=== PATIENT | female | born 1985 | race Caucasian/White ===

== ENCOUNTER 2018-10-01 15:57 | Emergency (ER) | payer OTHER ==
--- NOTE | 2018-10-01 16:01 | PDOC ---
Rapid Medical Evaluation Time Seen by Provider: 10/01/18 15:59 Medical Evaluation: Allergies Allergy/AdvReac Type Severity Reaction Status Date / Time No Known Allergies Allergy Verified 10/01/18 15:48 I have performed a brief in-person evaluation of this patient. The patient presents with a chief complaint of: 20 weeks with abdominal pain. was seen and monitored up here and was sent down for further evaluation Pertinent physical exam findings: none I have ordered the following: UA/culture The patient will proceed to the ED for further evaluation. Discharge Disposition - Diagnosis Abdominal pain affecting - Referrals Referrals: Jed Grey [Primary Care Provider] - - Patient Instructions - Post Discharge Activity
[2018-10-01 16:03] VITALS: BP 121/72; PULSE 67; TEMP 98.3; BMI 38.9
[2018-10-01 16:24] LABS: URINE APPEARANCE CLEAR; URINE BILIRUBIN NEGATIVE (<2.0 mg/dL); URINE COLOR COLORLESS; URINE GLUCOSE (UA) NEGATIVE (NEGATIVE); URINE KETONE NEGATIVE (NEGATIVE); URINE LEUK ESTERASE NEGATIVE (NEGATIVE); URINE NITRITE NEGATIVE (NEGATIVE); URINE PROTEIN NEGATIVE (NEGATIVE); URINE UROBILINOGEN NEGATIVE mg/dL (0.2-1.0)
--- NOTE | 2018-10-01 16:34 | PDOC ---
Attending Attestation - HPI HPI: This patient is a 33 year old female , currently 20 weeks , who presents with abdominal pain for a couple months that acutely worsened today. Patient describes the abdominal pain as a sharp, burning on skin, soreness, located near belly button, nonradiating, worsen when stand up, sneezing, or bearing down. Patient states that she has had a hard time picking up her 40 lb 2 year old son and putting him in the car seat. Patient also notes nausea and vomiting that has been consistent with her morning sickness. She also notes 1 ep. of diarrhea last night. Denies any fever, vaginal bleeding, or d/c, denies any cramping, constipation, dysuria, or other urinary complaints. Surgical Hx: Appendectomy (2004) PCP: [facility] - Dr. Rubi 10/01/18 18:06 <Danyell Majano - Last Filed: 10/01/18 18:06> - Resident Resident Name: Gera Tolliver - ED Attending Attestation I have performed the following: I have examined & evaluated the patient, The case was reviewed & discussed with the resident, I agree w/resident's findings & plan, Exceptions are as noted - Physicial Exam PE: 10/01/18 17:53 GENERAL: The patient is awake, alert, and fully oriented, Nontoxic - in no acute distress. HEAD: Normocephalic, atraumatic. EYES: extraocular movements intact, sclera anicteric, conjunctiva clear. ENT: Normal voice, Moist mucous membranes. ABDOMEN: Soft, moderate reproducbile tenderness in the periumbilical region + small palable defect w/o mass/incarceration, no significant mass on bearing down , pain reprodible with flexion of absdominal wall muscles. no rebound/guarding, neg rovsigns, mcburneys, SKIN: Warm, Dry, normal turgor, no rashes on abd wall - Medical Decision Making 10/01/18 17:14 33y F at 20 weeks presents with complaint of several months of abodminal pain. Pain is worse, sharp/soreness in the epgigastrium. worsens when she stands , sneezes, bears down, movement. Pt has been having morning sickness since early and notes she has been nausea c/w same, but notes it has actually been improving. had a few episodes of diarrhea eysterday but resolved. no associated fever/chills, vag bleeding, dysuria, vag discharge. consider possible hernia no signs of obstruction clinically or palpable mass on exam ?possible muscle strain. will give tylenol will ck basic labs UA neg for UTI supprotive care at home if w/u negative 10/01/18 18:54 A portion of this note was documented by scribe services under my direction. I have reviewed the details of the note, within reason, and agree with the documentation with the following case summary and management plan written by me <Bo Sarmiento - Last Filed: 10/01/18 18:54>
[2018-10-01] MEDS ORDERED: ONDANSETRON 4 MG/2 ML VIAL IVPUSH ONE (17:27)
[2018-10-01] MEDS ORDERED: SODIUM CHLORIDE 0.9% 1000 ML INFUS.BAG IV ONE (17:27)
[2018-10-01] MEDS ORDERED: FAMOTIDINE 20 MG/50 ML IVPB 20 MG/50 ML MG IVPB ONE ×2 (17:27→17:37)
[2018-10-01] MEDS ORDERED: ONDANSETRON 4 MG/2 ML VIAL ONE (17:37)
[2018-10-01] MEDS ORDERED: ACETAMINOPHEN 325 MG TABLET (FP) PO ONE (17:49)
[2018-10-01] MEDS ORDERED: ACETAMINOPHEN 325 MG TABLET (FP) ONE (17:49)
[2018-10-01 18:01] LABS: BASO % 0.4 % (0-2.0); LYMPH % 18.2 % (8-40); MCH 31.4 pg (25.7-33.7); MCHC 35.2 g/dl (32.0-36.0); MEAN CELL VOLUME 89.1 fl (80-96); NEUT % 76.4 % (42.8-82.8); PLATELET COUNT 301 K/MM3 (134-434); RBC 3.81 M/mm3 (3.60-5.2); RDW 13.2 % (11.6-15.6); WHITE BLOOD COUNT 11.4 K/mm3 (4.0-10.0)
[2018-10-01 18:22] LABS: ALBUMIN 3.1 g/dl (3.4-5.0); ALK PHOS 50 U/L (45-117); ANION GAP 9 MMOL/L (8-16); BILIRUBIN,TOTAL 0.2 mg/dL (0.2-1); BLOOD UREA NITROGEN 12 mg/dL (7-18); CALCIUM 8.7 mg/dL (8.5-10.1); CHLORIDE 103 mmol/L (98-107); CO2 24 mmol/L (21-32); CREATININE 0.5 mg/dL (0.55-1.3); GLUCOSE,RANDOM 128 mg/dL (74-106); POTASSIUM 3.8 mmol/L (3.5-5.1); SGOT/AST 12 U/L (15-37); SGPT/ALT 12 U/L (13-61); SODIUM 136 mmol/L (136-145); TOT PROT 6.9 g/dl (6.4-8.2)
--- NOTE | 2018-10-01 18:50 | PDOC ---
History of Present Illness - General Chief Complaint: Pain Stated Complaint: Pain Time Seen by Provider: 10/01/18 15:59 History Source: Patient Exam Limitations: No Limitations - History of Present Illness Initial Comments: 10/01/18 18:44 The patient is a 33F at 20 weeks who presents to the ER with complaints of abdominal pain. The patient describes 2-3 months of abdominal soreness located right on her umbilicus. She states that the pain does not radiate anywhere. Today, she noticed that the pain was much worse than prior, worsened with any movements and anything that increased her intraabdominal pressure including sneezing and standing up. She admits to diarrhea and 3 bouts of nausea and vomiting. She denies any fever, chills, CP, SOB, dysuria, vaginal bleeding, and cramping. Past History - Past Medical History Allergies/Adverse Reactions: Allergies Allergy/AdvReac Type Severity Reaction Status Date / Time No Known Allergies Allergy Verified 10/01/18 16:08 Home Medications: Ambulatory Orders NK [No Known Home Medication] 10/01/18 Asthma: No Cancer: No Cardiac Disorders: No COPD: No Diabetes: No HTN: No Seizures: No Thyroid Disease: No - Surgical History Appendectomy: Yes - Reproductive History Is Patient Now?: Yes Cervical CA: No Dysfunctional Uterine Bleeding: No Ectopic : No Endometrial CA: No Polycystic Ovaries: No Tubal Ligation: No - Immunization History Immunization Up to Date: Yes - Suicide/Smoking/Psychosocial Hx Smoking History: Never smoked Have you smoked in the past 12 months: No Hx Alcohol Use: No Drug/Substance Use Hx: No Substance Use Type: None Hx Substance Use Treatment: No Review of Systems - Review of Systems Able to Perform ROS?: Yes Comments:: 10/01/18 18:47 GENERAL/CONSTITUTIONAL: No fever or chills. No weakness. HEAD, EYES, EARS, NOSE AND THROAT: No change in vision. No ear pain or discharge. No sore throat. CARDIOVASCULAR: No chest pain, palpitations, or lightheadedness. RESPIRATORY: No cough, wheezing, shortness of breath, or hemoptysis. GASTROINTESTINAL: Positive for nausea, vomiting, abdominal pain, and diarrhea. GENITOURINARY: No dysuria, frequency, hematuria, or change in urination. MUSCULOSKELETAL: No joint or muscle swelling or pain. No neck or back pain. SKIN: No rash or lesions. NEUROLOGIC: No headache, numbness, tingling, focal weakness, loss of consciousness, or change in strength/sensation. Is the patient limited Swedish proficient: No *Physical Exam - Vital Signs Last Vital Signs Temp Pulse Resp BP Pulse Ox 98.3 F 67 18 121/72 100 10/01/18 15:59 10/01/18 15:59 10/01/18 15:59 10/01/18 15:59 10/01/18 15:59 - Physical Exam Comments: 10/01/18 18:49 GENERAL: Well developed, well nourished. Awake and alert. In mild distress. HEENT: Normocephalic, atraumatic. Hearing grossly normal. Moist mucous membranes. PERRLA, EOMI. No conjunctival pallor. Sclera are non-icteric. NECK: Supple. Full ROM. No JVD. CARDIOVASCULAR: Regular rate and rhythm. No murmurs, rubs, or gallops. PULMONARY: No evidence of respiratory distress. Lungs clear to auscultation bilaterally. No wheezing, rales or rhonchi. ABDOMINAL: Soft. TTP over perumbilical abdomen and suprapubic abdomen with voluntary guarding. Non-distended. No rebound. GENITOURINARY: No CVA tenderness bilaterally. MUSCULOSKELETAL: Normal range of motion at all joints. No bony deformities or tenderness. EXTREMITIES: No cyanosis. No clubbing. No edema. No calf tenderness or swelling. SKIN: Warm and dry. Normal capillary refill. No rashes. No jaundice. NEUROLOGICAL: Alert, awake, appropriate. Cranial nerves 2-12 grossly intact. Normal speech. Gait is normal without ataxia. PSYCHIATRIC: Cooperative. Good eye contact. Appropriate mood and affect. Moderate Sedation - Procedure Monitoring Vital Signs: Procedure Monitoring Vital Signs Temperature 98.3 F 10/01/18 15:59 Pulse Rate 67 10/01/18 15:59 Respiratory Rate 18 10/01/18 15:59 Blood Pressure 121/72 10/01/18 15:59 O2 Sat by Pulse Oximetry (%) 100 10/01/18 15:59 ED Treatment Course - LABORATORY CBC & Chemistry Diagram: 10/01/18 17:49 10/01/18 17:49 - ADDITIONAL ORDERS Additional order review: Laboratory Results 10/01/18 10/01/18 17:49 16:10 Sodium 136 Potassium 3.8 Chloride 103 Carbon Dioxide 24 Anion Gap 9 BUN 12 Creatinine 0.5 L Creat Clearance w eGFR > 60 Random Glucose 128 H Calcium 8.7 Total Bilirubin 0.2 AST 12 L ALT 12 L Alkaline Phosphatase 50 Total Protein 6.9 Albumin 3.1 L Urine Color Colorless Urine Appearance Clear Urine pH 6.0 Ur Specific [place] 1.004 L Urine Protein Negative Urine Glucose (UA) Negative Urine Ketones Negative Urine Blood Negative Urine Nitrite Negative Urine Bilirubin Negative Urine Urobilinogen Negative Ur Leukocyte Esterase Negative 10/01/18 17:49 RBC 3.81 MCV 89.1 MCHC 35.2 RDW 13.2 MPV 7.0 L Neutrophils % 76.4 D Lymphocytes % 18.2 D Monocytes % 4.0 Eosinophils % 1.0 Basophils % 0.4 - Medications Given in the ED: ED Medications Discontinued Medications Generic Name Dose Route Start Last Admin Trade Name Freq PRN Reason Stop Dose Admin Acetaminophen 650 mg 10/01/18 17:49 10/01/18 17:54 Tylenol - PO 10/01/18 17:50 650 mg ONCE ONE Administration Famotidine/Sodium Chloride 20 mg in 50 mls @ 100 mls/hr 10/01/18 17:27 17:55 Pepcid 20 Mg Premixed Ivpb - IVPB 10/01/18 17:56 Not Given ONCE ONE Ondansetron HCl 4 mg 10/01/18 17:27 10/01/18 17:55 Zofran Injection IVPUSH 10/01/18 17:28 Not Given ONCE ONE Sodium Chloride 1,000 ml 10/01/18 17:27 10/01/18 17:55 Normal Saline - IV 10/01/18 17:28 Not Given ONCE ONE Medical Decision Making - Medical Decision Making 10/01/18 18:50 The patient is a 33F at 20 weeks who presents to the ER for abdominal pain , concerning for hernia vs MSK vs UTI. UA negative. Pt was seen by GERIATRICS PHYSICIAN and cleared for ED evaluation, making me less concerned for a pathological event with the fetus. Giving GI cocktail and reassessing. No palpable incarceration appreciated on examination, no masses appreciated either. Pt states she did not feel better after the GI cocktail and requests food. Will give food and reassess. 10/01/18 18:52 Pt signed out to Dr. Cottrell for further care. *DC/Admit/Observation/Transfer Diagnosis at time of Disposition: Abdominal pain affecting - Referrals Referrals: Jed Grey [Primary Care Provider] - - Patient Instructions - Post Discharge Activity
--- NOTE | 2018-10-01 19:16 | PDOC ---
*Physical Exam - Vital Signs Last Vital Signs Temp Pulse Resp BP Pulse Ox 98.3 F 67 18 121/72 100 10/01/18 15:59 10/01/18 15:59 10/01/18 15:59 10/01/18 15:59 10/01/18 15:59 - Physical Exam General Appearance: Yes: Nourished, Appropriately Dressed HEENT: positive: EOMI, RAF, Normal ENT Inspection, Normal Voice, Symmetrical Neck: positive: Trachea midline. negative: Rigid, Supple Respiratory/Chest: positive: Lungs Clear, Normal Breath Sounds. negative: Respiratory Distress Cardiovascular: positive: Regular Rhythm, Regular Rate, S1, S2. negative: Edema Vascular Pulses: Dorsalis-Pedis (R): 2+, Doralis-Pedis (L): 2+ Gastrointestinal/Abdominal: positive: Normal Bowel Sounds, Tender, Tenderness. negative: Pulsatile Mass, Increased Bowel Sounds, Distended, Guarding, Rebound Lymphatic: negative: Adenopathy Musculoskeletal: positive: Normal Inspection. negative: CVA Tenderness Extremity: positive: Normal Capillary Refill, Normal Inspection, Normal Range of Motion Integumentary: positive: Normal Color, Dry, Warm Neurologic: positive: process development engineer II-XII NML intact, Fully Oriented, Alert, Normal Mood/ Affect ED Treatment Course - LABORATORY CBC & Chemistry Diagram: 10/01/18 17:49 10/01/18 17:49 - ADDITIONAL ORDERS Additional order review: Laboratory Results 10/01/18 10/01/18 17:49 16:10 Sodium 136 Potassium 3.8 Chloride 103 Carbon Dioxide 24 Anion Gap 9 BUN 12 Creatinine 0.5 L Creat Clearance w eGFR > 60 Random Glucose 128 H Calcium 8.7 Total Bilirubin 0.2 AST 12 L ALT 12 L Alkaline Phosphatase 50 Total Protein 6.9 Albumin 3.1 L Urine Color Colorless Urine Appearance Clear Urine pH 6.0 Ur Specific [place] 1.004 L Urine Protein Negative Urine Glucose (UA) Negative Urine Ketones Negative Urine Blood Negative Urine Nitrite Negative Urine Bilirubin Negative Urine Urobilinogen Negative Ur Leukocyte Esterase Negative 10/01/18 17:49 RBC 3.81 MCV 89.1 MCHC 35.2 RDW 13.2 MPV 7.0 L Neutrophils % 76.4 D Lymphocytes % 18.2 D Monocytes % 4.0 Eosinophils % 1.0 Basophils % 0.4 - Medications Given in the ED: ED Medications Discontinued Medications Generic Name Dose Route Start Last Admin Trade Name Edwina PRN Reason Stop Dose Admin Acetaminophen 650 mg 10/01/18 17:49 10/01/18 17:54 Tylenol - PO 10/01/18 17:50 650 mg ONCE ONE Administration Famotidine/Sodium Chloride 20 mg in 50 mls @ 100 mls/hr 10/01/18 17:27 17:55 Pepcid 20 Mg Premixed Ivpb - IVPB 10/01/18 17:56 Not Given ONCE ONE Ondansetron HCl 4 mg 10/01/18 17:27 10/01/18 17:55 Zofran Injection IVPUSH 10/01/18 17:28 Not Given ONCE ONE Sodium Chloride 1,000 ml 10/01/18 17:27 10/01/18 17:55 Normal Saline - IV 10/01/18 17:28 Not Given ONCE ONE Medical Decision Making - Medical Decision Making Patient signed out to me from day team. She is a 33F at 20 weeks who presents to the ER for abdominal pain, concerning for hernia vs MSK vs UTI. UA negative. - Pt was seen by [facility] and cleared for ED evaluation, making me less concerned for a pathological event with the fetus. - She received a GI cocktail and did not report any relief. - No palpable incarceration appreciated on examination, no masses appreciated either - Will send for abdominal US to r/o hernia - US showed no ventral hernia - Will also give liter of NS to hydrate patient and baby. - Will reccommend MRI as outpatient if pain persists. *DC/Admit/Observation/Transfer Diagnosis at time of Disposition: Abdominal pain affecting - Discharge Dispostion Disposition: HOME Condition at time of disposition: Stable Decision to Admit order: No - Referrals Referrals: Jed Grey [Primary Care Provider] - - Patient Instructions Printed Discharge Instructions: and Sleep: A Contradiction in Terms? , Skin: Glowing, Stretching, Darkening, and More Additional Instructions: You came into the ER with abdominal pain. We did an ultrasound which showed you don't have a hernia. If your pain persists you should get an MRI as an outpatient. Come back to the ER if your pain worsens, you start vomiting or have any other new or worsening concerns. \ Thank you for coming to the [facility] ER. We hope you feel better soon! Print Language: TELUGU - Post Discharge Activity
[2018-10-01] MEDS ORDERED: SODIUM CHLORIDE 0.9% 500 ML INFUS.BAG IV ONE (19:33)
--- NOTE | 2018-10-01 19:40 | PDOC ---
*Physical Exam - Vital Signs Last Vital Signs Temp Pulse Resp BP Pulse Ox 98.3 F 67 18 121/72 100 10/01/18 15:59 10/01/18 15:59 10/01/18 15:59 10/01/18 15:59 10/01/18 15:59 ED Treatment Course - LABORATORY CBC & Chemistry Diagram: 10/01/18 17:49 10/01/18 17:49 - ADDITIONAL ORDERS Additional order review: Laboratory Results 10/01/18 10/01/18 17:49 16:10 Sodium 136 Potassium 3.8 Chloride 103 Carbon Dioxide 24 Anion Gap 9 BUN 12 Creatinine 0.5 L Creat Clearance w eGFR > 60 Random Glucose 128 H Calcium 8.7 Total Bilirubin 0.2 AST 12 L ALT 12 L Alkaline Phosphatase 50 Total Protein 6.9 Albumin 3.1 L Urine Color Colorless Urine Appearance Clear Urine pH 6.0 Ur Specific [place] 1.004 L Urine Protein Negative Urine Glucose (UA) Negative Urine Ketones Negative Urine Blood Negative Urine Nitrite Negative Urine Bilirubin Negative Urine Urobilinogen Negative Ur Leukocyte Esterase Negative 10/01/18 17:49 RBC 3.81 MCV 89.1 MCHC 35.2 RDW 13.2 MPV 7.0 L Neutrophils % 76.4 D Lymphocytes % 18.2 D Monocytes % 4.0 Eosinophils % 1.0 Basophils % 0.4 - RADIOLOGY Radiology Studies Ordered: Category Date Time Status ABDOMEN US -LIMITED [US] Stat Ultrasound 10/01/18 19:34 Ordered - Medications Given in the ED: ED Medications Discontinued Medications Generic Name Dose Route Start Last Admin Trade Name Obinnaq PRN Reason Stop Dose Admin Acetaminophen 650 mg 10/01/18 17:49 10/01/18 17:54 Tylenol - PO 10/01/18 17:50 650 mg ONCE ONE Administration Famotidine/Sodium Chloride 20 mg in 50 mls @ 100 mls/hr 10/01/18 17:27 17:55 Pepcid 20 Mg Premixed Ivpb - IVPB 10/01/18 17:56 Not Given ONCE ONE Ondansetron HCl 4 mg 10/01/18 17:27 10/01/18 17:55 Zofran Injection IVPUSH 10/01/18 17:28 Not Given ONCE ONE Sodium Chloride 1,000 ml 10/01/18 17:27 10/01/18 17:55 Normal Saline - IV 10/01/18 17:28 Not Given ONCE ONE Medical Decision Making - Medical Decision Making 10/01/18 19:35 I received pt on signout. She describes umbilical pain and decreased intake today and viral gastroenteritis story last night with diarrhea around midnight. Pt will be hydrated, as she was not earlier. Pt also descrobes shooting umbilical pain when she picked up her 2 yo today; states that she never has pain lifting him. Pt also had pain sitting at her desk at work. She states that the discomfort would not go away. Pt has no appendix (it was removed) and she has no RUQ pain. All pain is around the belly buttin and inferior to the umbilicus. I placed pt in trendelenberg and attempted to press in the area. I could not feel a defect, ut pt was in considerable pain and she was tearing up. We will send her for a sono of the umbilicus. 10/01/18 22:09 Pt had a sono that was read as normal; and she has no ventral hernia seen. Pt was hydrated with 1L NSS and she is feeling better *DC/Admit/Observation/Transfer Diagnosis at time of Disposition: Abdominal pain affecting - Discharge Dispostion Disposition: HOME Condition at time of disposition: Stable - Referrals Referrals: Jed Grey [Primary Care Provider] - - Patient Instructions Printed Discharge Instructions: Skin: Glowing, Stretching, Darkening , and More, and Sleep: A Contradiction in Terms? Additional Instructions: You came into the ER with abdominal pain. We did an ultrasound which showed you don't have a hernia. If your pain persists you should get an MRI as an outpatient. Come back to the ER if your pain worsens, you start vomiting or have any other new or worsening concerns. \ Thank you for coming to the [facility] ER. We hope you feel better soon! Print Language: ITALIAN - Post Discharge Activity
== END 2018-10-01 23:06 | disposition home or self-care (01) ==
LOC: JER 15:57
PROC: 3E0337Z Introduction of Electrolytic and Water Balance Substance into Peripheral Vein, Percutaneous Approach (ICD-10-PCS; principal; 2018-10-01)
DX: O26.892 Other specified pregnancy related conditions, second trimester (principal); Z3A.20 20 weeks gestation of pregnancy; R10.9 Unspecified abdominal pain
CPT/HCPCS: 36415; 76705; 80053; 81003; 85025; 87086; 99283-25

== ENCOUNTER 2018-12-11 21:46 | Emergency (ER) | payer OTHER ==
[2018-12-11 21:50] VITALS: BMI 40.2
--- NOTE | 2018-12-11 22:45 | PDOC ---
History of Present Illness - General Chief Complaint: Respiratory Stated Complaint: 31 WKS /COUGHING/VOMITING Time Seen by Provider: 12/11/18 21:51 History Source: Patient Exam Limitations: No Limitations - History of Present Illness Initial Comments: 12/11/18 22:47 HISTORY OF PRESENT ILLNESS: This is a 33-year-old was 31 weeks gestation who presents emergency department for evaluation of 2 weeks of dry cough, nasal congestion and posttussive vomiting. Patient was seen and evaluated in urgent care center and told to take Tylenol fluids for symptomatic treatment. Patient was reevaluated by her PORT STEWARD and put her on azithromycin to treat for potential pneumonia and/or strep throat as patient had sore throat and cough. Patient denies any PORT STEWARD complaints at this time. No recent travel or sick contacts. PAST MEDICAL HISTORY: Denies past medical history SURGICAL HISTORY: Denies ALLERGIES: No known drug allergies REVIEW OF SYSTEMS General/Constitutional: Denies fever or chills. Denies weakness, weight change. HEENT: Denies change in vision. Denies ear pain or discharge. Denies sore throat. Cardiovascular: Denies chest pain or shortness of breath. Respiratory: see HPI Gastrointestinal: see HPI Genitourinary: Denies dysuria, frequency, or change in urination. Musculoskeletal: Denies joint or muscle swelling or pain. Denies neck or back pain. Skin and breasts: Denies rash or easy bruising. Neurologic: Denies headache, vertigo, loss of consciousness, or loss of sensation. Psychiatric: Denies depression or anxiety. Endocrine: Denies increased thirst. Denies abnormal weight change. Hematologic/Lymphatic: Denies anemia, easy bleeding, or history of blood clots. Allergic/Immunologic: Denies hives or skin allergy. Denies latex allergy. PHYSICAL EXAM General Appearance: Well-appearing, appropriately dressed. No apparent distress , no intoxication. HEENT: EOMI, PERRLA, normal voice, TMs normal. Oropharynx erythematous with singular vesicular lesion present to the soft palate on the right side. No conjunctival pallor. No photophobia, scleral icterus. Neck: Supple. Trachea midline. No tenderness, rigidity, carotid bruit, stridor , lymphadenopathy, or thyromegaly. Respiratory/Chest: Lungs CTAB. No shortness of breath, chest tenderness, respiratory distress, accessory muscle use. No crackles, rales, rhonchi, stridor , wheezing, dullness Cardiovascular: RRR. S1, S2. No JVD, murmur, bradycardia, tachycardia. Vascular Pulses: Dorsalis-Pedis (R): 2+, Dorsalis-Pedis (L): 2+ Gastrointestinal/Abdominal: Normal bowel sounds. Abdomen soft, non-distended. No tenderness or rebound tenderness. No organomegaly, pulsatile mass, guarding, hernia, hepatomegaly, splenomegaly. Lymphatic: No adenopathy, tenderness. Musculoskeletal/Extremities: Normal inspection. FROM of all extremities, normal capillary refill. Pelvis Stable. No CVA tenderness. No tenderness to extremities, pedal edema, swelling, erythema or deformity. Integumentary: Appropriate color, dry, warm. No cyanosis, erythema, jaundice or rash Neurologic: lightning rod erector II-XII intact. Fully oriented, alert. Appropriate mood/affect. Motor strength 5/5. No appreciable EOM palsy, facial droop or sensory deficit. Past History - Past Medical History Allergies/Adverse Reactions: Allergies Allergy/AdvReac Type Severity Reaction Status Date / Time No Known Allergies Allergy Verified 12/11/18 21:50 Home Medications: Ambulatory Orders NK [No Known Home Medication] 10/01/18 Asthma: No Cancer: No Cardiac Disorders: No COPD: No Diabetes: No HTN: No Seizures: No Thyroid Disease: No - Surgical History Appendectomy: Yes - Reproductive History Cervical CA: No Dysfunctional Uterine Bleeding: No Ectopic : No Endometrial CA: No Polycystic Ovaries: No Tubal Ligation: No - Immunization History Immunization Up to Date: Yes - Suicide/Smoking/Psychosocial Hx Smoking History: Never smoked Have you smoked in the past 12 months: No Hx Alcohol Use: No Drug/Substance Use Hx: No Substance Use Type: None Hx Substance Use Treatment: No *Physical Exam - Vital Signs Last Vital Signs Temp Pulse Resp BP Pulse Ox 97.9 F 82 18 132/84 97 12/11/18 21:48 12/11/18 21:48 12/11/18 21:48 12/11/18 21:48 12/11/18 21:48 Moderate Sedation - Procedure Monitoring Vital Signs: Procedure Monitoring Vital Signs Temperature 97.9 F 12/11/18 21:48 Pulse Rate 82 12/11/18 21:48 Respiratory Rate 18 12/11/18 21:48 Blood Pressure 132/84 12/11/18 21:48 O2 Sat by Pulse Oximetry (%) 97 12/11/18 21:48 Medical Decision Making - Medical Decision Making 12/11/18 22:30 A/P: 33-year-old woman for evaluation of 2 weeks of a story symptoms 34 weeks Influenza testing is negative Lungs clear to auscultation bilaterally Oropharynx erythematous with a single vesicular lesion present to the soft palate on the right side. Exam is consistent with coxsackie virus infection. Supportive treatment is been discussed with the patient was verbalized understanding of discharge instructions. I'll send patient to L&D for evaluation of the child. 12/11/18 22:47 L&D contacted and Jacki LEIJA is aware of patient. *DC/Admit/Observation/Transfer Diagnosis at time of Disposition: URI (upper respiratory infection) Qualifiers: URI type: acute pharyngitis Pharyngitis/tonsillitis etiology: Coxsackie virus Qualified Code(s): B08.5 - Enteroviral vesicular pharyngitis - Discharge Dispostion Disposition: HOME Condition at time of disposition: Stable Decision to Admit order: No - Referrals Referrals: Michael Patel MD [Primary Care Provider] - - Patient Instructions Additional Instructions: Rest, drink lots of fluids: Teas, water, soups, Pedialyte Saltwater gargles Steamy showers/seem to face break up mucus Avoid contact with others until fevers and cough resolved Lots of handwashing and good hygiene Continue [id number] medications for symptomatic relief Tylenol for fever and pain Followup with private physician in one to 2 days as needed Return to emergency department for worsened symptoms, fevers, dehydration - Post Discharge Activity
[2018-12-12] MEDS ORDERED: DEXTROSE 5%-LACTATED RINGERS 500 ML IV ONE ×2 (01:30→02:30)
[2018-12-12 01:31] LABS: BASO % 0.2 % (0-2.0); EOS % 1.4 % (0-4.5); HEMOGLOBIN 10.3 GM/dL (10.7-15.3); MCH 31.6 pg (25.7-33.7); MCHC 35.4 g/dl (32.0-36.0); MEAN CELL VOLUME 89.3 fl (80-96); MEAN PLT VOLUME 7.2 fl (7.5-11.1); MONO % 7.6 % (3.8-10.2); NEUT % 65.8 % (42.8-82.8); PLATELET COUNT 312 K/MM3 (134-434); RBC 3.25 M/mm3 (3.60-5.2); RDW 13.3 % (11.6-15.6)
[2018-12-12 01:58] LABS: ALBUMIN 2.7 g/dl (3.4-5.0); ALK PHOS 116 U/L (45-117); ANION GAP 7 MMOL/L (8-16); BILIRUBIN,TOTAL 0.2 mg/dL (0.2-1); BLOOD UREA NITROGEN 16 mg/dL (7-18); CALCIUM 8.6 mg/dL (8.5-10.1); CHLORIDE 103 mmol/L (98-107); CO2 26 mmol/L (21-32); CREATININE 0.5 mg/dL (0.55-1.3); GLUCOSE,RANDOM 82 mg/dL (74-106); POTASSIUM 3.6 mmol/L (3.5-5.1); SGOT/AST 11 U/L (15-37); SGPT/ALT 11 U/L (13-61); SODIUM 136 mmol/L (136-145); TOT PROT 6.5 g/dl (6.4-8.2)
[2018-12-12] MEDS ORDERED: ONDANSETRON 4 MG/2 ML VIAL IVPB ONE (02:45)
[2018-12-12 04:18] VITALS: BP 111/67; PULSE 77; TEMP 98.7
== END 2018-12-12 04:00 | disposition home or self-care (01) ==
LOC: JERFT 21:46 → JER 21:46
DX: O26.893 Other specified pregnancy related conditions, third trimester (principal); J06.9 Acute upper respiratory infection, unspecified; O98.513 Other viral diseases complicating pregnancy, third trimester; B33.8 Other specified viral diseases; B08.5 Enteroviral vesicular pharyngitis; Z3A.31 31 weeks gestation of pregnancy
CPT/HCPCS: 36415; 71046-TC-FY; 80053; 85025; 87804; 99282-25

== ENCOUNTER 2019-02-08 19:15 | Inpatient (IN) | payer OTHER ==
--- NOTE | 2019-02-08 19:55 | HP ---
Past Medical History - Primary Care Physician PCP:: Michael Patel - Admission Chief Complaint: 33yo P2 presented to L&D after brought in by ambulance in second stage of labor with at EGA 39w2d. 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 Cardiovascular: No: AFIB, Aneurysm, Aortic Insufficiency, Aortic Stenosis, CAD, CHF, Deep Vein Thrombosis, HTN, Hyperlipdemia, NC, Mitral Insufficiency, Mitral Stenosis, Murmur, Pulmonary Hypertension, Other Pulmonary: No: Asthma, Bronchitis, Cancer, COPD, O2 Dependent, Pneumonia, Previously Intubated, Pulmonary Embolus, Pulmonary Fibrosis, Sleep Apnea, Other Gastrointestinal: No: Ascites, Cancer, Constipation, Crohn's Disease, Diverticulitis, Diverticulosis, Esophageal Varices, Gastritis, GERD, GI Bleed, Hemorrhoids, Hiatal Hernia, Inflamatory Bowel Disease, Irritable Bowel Disease, Pancreatitis, Peptic Ulcer Disease, Ulcerative Colitis, Other Hepatobiliary: No: Cirrhosis, Cholelithiasis, Cholecystitis, Choledocholithiasis , Hepatitis A, Hepatitis B, Hepatitis C, Other Renal/: No: Renal Failure, Renal Inusuff, BPH, Cancer, Hematuria, Hemodialysis , Neurogenic Bladder, Renal Calculi, UTI, Other Reproductive: No: Ectopic , Endometriosis, Fibroids, PID, Polycystic Ovary Syndrome, Postmenopausal, Other ...Para: 2 Heme/Onc: No: Anemia, B12 Deficiency, Bleeding Disorder, Cancer, Current Chemotherapy, Current Radiation Therapy, Hemochromatosis, Hypercoaguable State, Myeloproliferative Synd, Sickle Cell Disease, Sickle Cell Trait, Thrombocytopenia, Other Infectious Disease: No: AIDS, C-Diff, Herpes Zoster, HIV, MRSA, STD's, Tuberculosis, VREF, Other Psych: No: Addictions, Anxiety, Bipolar, Depression, Panic, Psychosis, Schizophrenia, Other Musculoskeletal: Yes: Other (carpal tunnel synd) Rheumatology: No: Fibromyalgia, Gout, Lupus, Rheumatoid Arthritis, Sarcoidosis, Vasculitis, Other ENT: No: Allergic Rhinitis, Sinusitis, Other Endocrine: Yes: Other (PCOS) Dermatology: No: Basal Cell, Cellulitis, Eczema, Melanoma, Psoriasis, Squamous Cell, Other Additional Medical History: PCOS - Past Surgical History Past Surgical History: Yes: Appendectomy Hx Myomectomy: No Hx Transabdominal Cerclage: No - Smoking History Smoking history: Never smoked Have you smoked in the past 12 months: No - Alcohol/Substance Use Hx Alcohol Use: No History of Substance Use: reports: None - Social History Usual Living Arrangement: Yes: With Spouse, With Child ADL: Independent History of Recent Travel: No Home Medications - Allergies Allergies/Adverse Reactions: Allergies Allergy/AdvReac Type Severity Reaction Status Date / Time No Known Allergies Allergy Verified 12/11/18 23:53 - Home Medications Home Medications: Ambulatory Orders Pnv No.95/Ferrous Fum/Folic AC [ Vitamin Tablet] 1 each PO DAILY Review of Systems - Review of Systems Constitutional: reports: Other (Painful contractions and pushing) Eyes: reports: No Symptoms HENT: reports: No Symptoms Neck: reports: No Symptoms Cardiovascular: reports: No Symptoms Respiratory: reports: No Symptoms Gastrointestinal: reports: No Symptoms Genitourinary: reports: No Symptoms Breasts: reports: No Symptoms Reported Musculoskeletal: reports: No Symptoms Integumentary: reports: No Symptoms Neurological: reports: No Symptoms Endocrine: reports: No Symptoms Hematology/Lymphatic: reports: No Symptoms Psychiatric: reports: No Symptoms Pain Intensity: 10 Physical Exam - Maternity Constitutional: Yes: Severe Distress (due to second stage of labor), Obese Eyes: Yes: WNL, Conjunctiva Clear, EOM Intact HENT: Yes: WNL, Atraumatic, Normocephalic Neck: Yes: WNL, Supple, Trachea Midline Cardiovascular: Yes: WNL, Regular Rate and Rhythm Lungs: Clear to auscultation, Normal air movement - Abdominal Exam/OB Fundal Height: 40 Number of Fetuses: Single Presentation: Vertex Contractions: Yes - Vaginal Exam/OB Vaginal Bleediing: No Speculum Exam: No Dilatation (cm): 10 Effacement (%): 100 Amniotic Membrane Status: Leaking Amniotic Fluid: Yes: Clear Presentation: Vertex/Position Station: +3 - Physical Exam Musculoskeletal: Yes: WNL Extremities: Yes: WNL Edema: Yes Edema: LLE: Trace, RLE: Trace Integumentary: Yes: WNL Deep Tendon Reflex Grade: Normal +2 ...Motor Strength: WNL Psychiatric: Yes: WNL, Alert, Oriented Hemorrhage Risk Assessment - Risk Factors Medium Risk Factors: Yes: None High Risk Factors: Yes: None Risk Score: 1 Risk Level: Medium Risk Assessment/Plan 33yo P2 presented to L&D after brought in by ambulance in second stage of labor. The pt was brought ot the L&D room and proceeded to have over intact perineum and w/o complications. She delivered a live baby girl with 9/9. Placenta delivered spontaneously. Mother and baby are well.
[2019-02-08] MEDS ORDERED: WITCH HAZEL 50% (TUCKS) 40 PAD/JAR PAD TP PRN (20:00)
[2019-02-08] MEDS ORDERED: BENZOCAINE 28 GM HEMORRHOIDAL OINTMENT TP PRN (20:00)
[2019-02-08] MEDS ORDERED: BISACODYL 10 MG SUPP.RECT RC PRN (20:00)
[2019-02-08] MEDS ORDERED: BENZOCAINE 20% 57 GM BOTTLE TP PRN (20:00)
[2019-02-08] MEDS ORDERED: OXYTOCIN 20 UNITS in 0.9% NS 20 UNIT/1,000 ML INFUS.BAG IV SCH (20:00)
[2019-02-08] MEDS ORDERED: METHYLERGONOVINE MALEATE 0.2 MG/1 ML AMP IM PRN (20:00)
[2019-02-08 20:38] LABS: BASO % 0.3 % (0-2.0); EOS % 0.1 % (0-4.5); HEMATOCRIT 31.2 % (32.4-45.2); HEMOGLOBIN 10.4 GM/dL (10.7-15.3); LYMPH % 9.8 % (8-40); MCH 28.8 pg (25.7-33.7); MCHC 33.3 g/dl (32.0-36.0); MEAN CELL VOLUME 86.5 fl (80-96); MEAN PLT VOLUME 7.4 fl (7.5-11.1); MONO % 3.6 % (3.8-10.2); NEUT % 86.2 % (42.8-82.8); PLATELET COUNT 313 K/MM3 (134-434); RBC 3.61 M/mm3 (3.60-5.2); RDW 14.7 % (11.6-15.6); WHITE BLOOD COUNT 13.1 K/mm3 (4.0-10.0)
[2019-02-08 21:02] LABS: INR 0.91 (0.83-1.09); PROTHROMBIN TIME (PATIENT) 10.7 SEC (9.7-13.0)
[2019-02-08 21:04] LABS: ANION GAP 11 MMOL/L (8-16); BLOOD UREA NITROGEN 14 mg/dL (7-18); CALCIUM 8.8 mg/dL (8.5-10.1); CHLORIDE 105 mmol/L (98-107); CO2 22 mmol/L (21-32); CREATININE 0.6 mg/dL (0.55-1.3); GLUCOSE,RANDOM 110 mg/dL (74-106); POTASSIUM 3.4 mmol/L (3.5-5.1); SODIUM 138 mmol/L (136-145)
[2019-02-08 21:17] VITALS: BMI 40.8
--- NOTE | 2019-02-08 21:54 | PN ---
Delivery - Delivery Vaginal Delivery: No Problems, Spontaneous Type of Anesthesia: None Episiotomy/Laceration: None EBL (cc): 250 Delivery, Single - Stages of Labor Date 1st Stage Initiatied: 02/08/19 Time 1st Stage Initiated: 17:30 Date of Delivery: 02/08/19 Time of Delivery: 19:15 Date Placenta Delivered: 02/08/19 Time Placenta Delivered: 19:20 Placenta: Yes: Spontaneous, Normal Configuration - Condition of Infant Mobility Developer/Reports Analyst Present: No Gender: Female Weight: 3.77 kg Position: OA Total Hours ROM (Hrs/Mins): 2m - 5 Minutes Total Score: 9 1 Minute Total Score: 9 - [place] Feeding Plan Initial Plan: Exclusive throughout hospitalization Benefits of Exclusively reinforced: Yes Remarks - Remarks Remarks: True knot in umbilical cord.
[2019-02-08] MEDS: IBUPROFEN 600 MG TABLET (FP) PO PRN (22:22)
[2019-02-08] MEDS: ACETAMINOPHEN 325 MG TABLET (FP) PO PRN (22:22)
[2019-02-09] MEDS: IBUPROFEN 600 MG TABLET (FP) PO PRN ×3 (04:14→23:34)
[2019-02-09] MEDS: ACETAMINOPHEN 325 MG TABLET (FP) PO PRN ×3 (04:16→23:36)
[2019-02-09 07:11] LABS: BASO % 0.1 % (0-2.0); EOS % 0.5 % (0-4.5); HEMATOCRIT 28.3 % (32.4-45.2); HEMOGLOBIN 9.4 GM/dL (10.7-15.3); LYMPH % 24.9 % (8-40); MCH 28.8 pg (25.7-33.7); MCHC 33.4 g/dl (32.0-36.0); MEAN CELL VOLUME 86.2 fl (80-96); MEAN PLT VOLUME 7.3 fl (7.5-11.1); MONO % 7.6 % (3.8-10.2); NEUT % 66.9 % (42.8-82.8); PLATELET COUNT 264 K/MM3 (134-434); RBC 3.28 M/mm3 (3.60-5.2); RDW 14.7 % (11.6-15.6); WHITE BLOOD COUNT 12.9 K/mm3 (4.0-10.0)
[2019-02-09] MEDS: PRENATAL VITAMINS W/ FOLIC ACID TABLET (FP) PO SCH (09:06)
--- NOTE | 2019-02-09 15:55 | PN ---
Post Progress Note - Subjective Subjective: Patient without acute complaints. Reports tolerating oral intake without nausea or vomiting. Ambulating without dizziness. Denies fevers or chills. Pain well controlled with oral pain medication. Pumping/breast feeding without issue. Passing flatus, no BM. Post Day: 1 Type of Delivery: Vital Signs: Vital Signs Temperature 97.8 F 02/09/19 14:00 Pulse Rate 67 02/09/19 14:00 Respiratory Rate 20 02/09/19 14:00 Blood Pressure 128/67 02/09/19 14:00 O2 Sat by Pulse Oximetry (%) 100 02/08/19 20:30 Breast Exam: Yes: Soft Uterus: Yes: Fundus Firm, Fundus below umbilicus, Non-tender Abdomen/GI: Yes: Abdomen soft, Passing flatus, Tolerating PO Lochia: Yes: Rubra Lochia, amount: Small Extremities: Yes: Edema (trace) Perineum: Yes: Intact Activity: Ambulating - Labs Labs: CBC WBC 12.9 K/mm3 (4.0-10.0) H 02/09/19 06:15 RBC 3.28 M/mm3 (3.60-5.2) L 02/09/19 06:15 Hgb 9.4 GM/dL (10.7-15.3) L 02/09/19 06:15 Hct 28.3 % (32.4-45.2) L 02/09/19 06:15 MCV 86.2 fl (80-96) 02/09/19 06:15 MCH 28.8 pg (25.7-33.7) 02/09/19 06:15 MCHC 33.4 g/dl (32.0-36.0) 02/09/19 06:15 RDW 14.7 % (11.6-15.6) 02/09/19 06:15 Plt Count 264 K/MM3 (134-434) 02/09/19 06:15 MPV 7.3 fl (7.5-11.1) L 02/09/19 06:15 Absolute Neuts (auto) 8.6 K/mm3 (1.5-8.0) H 02/09/19 06:15 Neutrophils % 66.9 % (42.8-82.8) D 02/09/19 06:15 Lymphocytes % 24.9 % (8-40) D 02/09/19 06:15 Monocytes % 7.6 % (3.8-10.2) D 02/09/19 06:15 Eosinophils % 0.5 % (0-4.5) D 02/09/19 06:15 Basophils % 0.1 % (0-2.0) 02/09/19 06:15 Nucleated RBC % 0 % (0-0) 02/09/19 06:15 Assessment/Plan 33yo P3 s/p , doing well stable, afebrile. Asymptomatic for anemia. care instructions reviewed. Continue routine care. Ambulation encouraged Discharge instruction reviewed.
--- NOTE | 2019-02-09 16:06 | DS ---
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 Vital Signs: Vital Signs Temperature 97.8 F 02/09/19 14:00 Pulse Rate 67 02/09/19 14:00 Respiratory Rate 20 02/09/19 14:00 Blood Pressure 128/67 02/09/19 14:00 O2 Sat by Pulse Oximetry (%) 100 02/08/19 20:30 Constitutional: Yes: Well Nourished, No Distress, Calm Eyes: Yes: WNL, Conjunctiva Clear HENT: Yes: WNL, Atraumatic, Normocephalic Neck: Yes: WNL, Supple, Trachea Midline Cardiovascular: Yes: WNL, Regular Rate and Rhythm Respiratory: Yes: WNL, Regular, CTA Bilaterally Gastrointestinal: Yes: WNL, Normal Bowel Sounds, Soft ...Rectal Exam: Yes: Deferred Renal/: Yes: WNL Internal Exam Deferred: Yes ....Post : Yes: Uterus firm, Uterus non-tender, Slight lochia rubra Breast(s): Yes: WNL Musculoskeletal: Yes: WNL Extremities: Yes: WNL Edema: Yes Edema: LLE: Trace, RLE: Trace Integumentary: Yes: WNL Neurological: Yes: WNL, Alert, Oriented ...Motor Strength: WNL Psychiatric: Yes: WNL, Alert, Oriented Labs: CBC, BMP 02/09/19 06:15 02/08/19 20:30 Delivery - Delivery Vaginal Delivery: No Problems, Spontaneous Type of Anesthesia: None Episiotomy/Laceration: None EBL (cc): 250 Delivery, Single - Stages of Labor Date 1st Stage Initiatied: 02/08/19 Time 1st Stage Initiated: 17:30 Date of Delivery: 02/08/19 Time of Delivery: 19:15 Time Placenta Delivered: 19:20 Placenta: Yes: Spontaneous, Normal Configuration - Condition of Infant [employer] Guard Supervisor/Enforcement Manager Present: No Gender: Female Weight: 3.77 kg Position: OA Total Hours ROM (Hrs/Mins): 2m - 5 Minutes Total Score: 9 1 Minute Total Score: 9 - [place] Feeding Plan Initial Plan: Exclusive throughout hospitalization Benefits of Exclusively reinforced: Yes Remarks - Remarks Remarks: True knot in umbilical cord. Discharge Summary Reason For Visit: LABOR Labor at term. Procedures: Principal: Hospital Course: Normal recovery Condition: Good - Instructions Diet, Activity, Other Instructions: Physical activity Resume your normal everyday activity as tolerated no heavy lifting or exercise until seen by your surgeon. You may walk unlimited kathia of and climb stairs. You may resume driving the car when you feel safe and comfortable behind the wheel. No sexual activity as instructed. Wound care If you have a bandage, leave it on, and keep dry for 48-72 hours. After that time discard the outer bandage. If they are tapes on the skin under the out of bandage leave them in place. They will peel off in the next 7 to 10 days. Do Not Peel them off. You may shower the day after surgery. If there are tapes present on the skin, you may shower over them. Diet There are no dietary restrictions. Eat healthy, high-fiber foods. Drink 6 to 8 glasses of liquid each day. This will assist in keeping your bowels are regular. Pain management You may take Tylenol or acetaminophen or Ibuprofen (for example, Motrin, Advil etc.) from my pain prescription medication is ordered should be taken as prescribed for moderate to severe pain. Call MD for any of the following: Severe pain not relieved by medication Fever of 101 or higher Excessive bleeding or drainage on dressing Inability to urinate Referrals: Michael Patel MD [Staff Physician] - Disposition: HOME - Home Medications Comprehensive Discharge Medication List: Ambulatory Orders Pnv No.95/Ferrous Fum/Folic AC [ Vitamin Tablet] 1 each PO DAILY
[2019-02-09] MEDS ORDERED: SENNOSIDES/DOCUSATE COMBO (SENNA PLUS) TABLET (UD) PO PRN (22:00)
--- NOTE | 2019-02-10 07:23 | PN ---
Post Progress Note - Subjective Subjective: Patient without acute complaints. Reports tolerating oral intake without nausea or vomiting. Ambulating without dizziness. Denies fevers or chills. Pain well controlled with oral pain medication. without difficulty. Passing flatus. Post Day: 2 Type of Delivery: Vital Signs: Vital Signs Temperature 98.5 F 02/09/19 21:27 Pulse Rate 74 02/09/19 21:27 Respiratory Rate 20 02/09/19 21:27 Blood Pressure 130/68 02/09/19 21:27 O2 Sat by Pulse Oximetry (%) 100 02/08/19 20:30 Breast Exam: Yes: Engorged Uterus: Yes: Fundus Firm, Fundus below umbilicus Abdomen/GI: Yes: Abdomen soft, Passing flatus, Tolerating PO. No: Abdominal Distention, Tender Lochia: Yes: Serosa Lochia, amount: Small Extremities: Yes: Calves non-tender, Edema (+1) Activity: Ambulating - Labs Labs: CBC WBC 12.9 K/mm3 (4.0-10.0) H 02/09/19 06:15 RBC 3.28 M/mm3 (3.60-5.2) L 02/09/19 06:15 Hgb 9.4 GM/dL (10.7-15.3) L 02/09/19 06:15 Hct 28.3 % (32.4-45.2) L 02/09/19 06:15 MCV 86.2 fl (80-96) 02/09/19 06:15 MCH 28.8 pg (25.7-33.7) 02/09/19 06:15 MCHC 33.4 g/dl (32.0-36.0) 02/09/19 06:15 RDW 14.7 % (11.6-15.6) 02/09/19 06:15 Plt Count 264 K/MM3 (134-434) 02/09/19 06:15 MPV 7.3 fl (7.5-11.1) L 02/09/19 06:15 Absolute Neuts (auto) 8.6 K/mm3 (1.5-8.0) H 02/09/19 06:15 Neutrophils % 66.9 % (42.8-82.8) D 02/09/19 06:15 Lymphocytes % 24.9 % (8-40) D 02/09/19 06:15 Monocytes % 7.6 % (3.8-10.2) D 02/09/19 06:15 Eosinophils % 0.5 % (0-4.5) D 02/09/19 06:15 Basophils % 0.1 % (0-2.0) 02/09/19 06:15 Nucleated RBC % 0 % (0-0) 02/09/19 06:15 Assessment/Plan 33 yo PPD # 2 s/p , afebrile, vital signs stable, mild asymptomatic anemia, desires DC home today 1. Patient stable for discharge home today. 2. Patient encouraged to contact MD for: - Severe pain not controlled by oral pain medication - Fevers or chills - Nausea or vomiting, intolerance of oral intake 3. Patient to follow up in office in 4-6 weeks for visit
[2019-02-10 08:10] VITALS: BP 120/71; PULSE 68; TEMP 97.9
[2019-02-10] MEDS: IBUPROFEN 600 MG TABLET (FP) PO PRN (09:33)
[2019-02-10] MEDS: PRENATAL VITAMINS W/ FOLIC ACID TABLET (FP) PO SCH (09:33)
[2019-02-10] MEDS: ACETAMINOPHEN 325 MG TABLET (FP) PO PRN (09:34)
== END 2019-02-10 14:30 | disposition home or self-care (01) | DRG 807 ==
LOC: JLDR 19:15 → J3W 22:00
PROVIDERS: ADMIT Obstetrics & Gynecology; ATTEND Obstetrics & Gynecology
PROC: 10E0XZZ Delivery of Products of Conception, External Approach (ICD-10-PCS; principal; 2019-02-08)
DX: O80 Encounter for full-term uncomplicated delivery (principal); Z37.0 Single live birth; Z3A.39 39 weeks gestation of pregnancy
CPT/HCPCS: 36415; 59409; 80048; 85025; 85610; 85730; 86593; 86850; 86900; 86901

== ENCOUNTER 2024-03-18 11:16 | Emergency (ER) | payer OTHER ==
[2024-03-18 11:28] VITALS: BP 135/70; PULSE 66; RESP 18; TEMP 98.5; BMI 35.9
[2024-03-18 12:54] LABS: BASO % 0.5 % (0-2.0); EOS % 1.5 % (0-4.5); HEMATOCRIT 35.1 % (32.4-45.2); HEMOGLOBIN 12.2 GM/dL (10.7-15.3); LYMPH % 32.2 % (8-40); MCH 31.3 pg (25.7-33.7); MCHC 34.6 g/dl (32.0-36.0); MEAN CELL VOLUME 90.4 fl (80-96); MEAN PLT VOLUME 6.7 fl (7.5-11.1); MONO % 6.3 % (3.8-10.2); NEUT % 59.5 % (42.8-82.8); PLATELET COUNT 299 10^3/uL (134-434); RBC 3.88 M/mm3 (3.60-5.2); RDW 13.4 % (11.6-15.6); WHITE BLOOD COUNT 7.3 K/mm3 (4.0-10.0)
[2024-03-18 12:57] LABS: EPI CELLS 36 /uL (0-25.1); HYALINE CASTS 1 /uL (0-3.1); URINE APPEARANCE CLOUDY; URINE BACTERIA 1433 /uL (0-1359); URINE BILIRUBIN NEGATIVE (NEGATIVE); URINE COLOR YELLOW; URINE GLUCOSE (UA) NEGATIVE (NEGATIVE); URINE KETONE NEGATIVE (NEGATIVE); URINE LEUK ESTERASE 2+ (NEGATIVE); URINE NITRITE NEGATIVE (NEGATIVE); URINE PROTEIN NEGATIVE (NEGATIVE); URINE RBC 31 /uL (0-23.9); URINE UROBILINOGEN 0.2 mg/dL (0.2-1.0); URINE WBC 148 /uL (0-25.8)
[2024-03-18 13:12] LABS: POTASSIUM 3.8 mmol/L (3.5-5.1)
[2024-03-18 13:15] LABS: BLOOD UREA NITROGEN 12.3 mg/dL (7-18); CALCIUM 9.3 mg/dL (8.5-10.1)
[2024-03-18 13:19] LABS: BILIRUBIN,TOTAL 0.4 mg/dL (0.2-1); CREATININE 0.6 mg/dL (0.55-1.3); TOT PROT 7.8 g/dl (6.4-8.2)
[2024-03-18 14:03] LABS: PH,URINE 5.5 (5.0-8.0); URINE APPEARANCE Clear; URINE BILIRUBIN Negative (NEGATIVE); URINE COLOR Yellow; URINE GLUCOSE (UA) Negative (NEGATIVE); URINE KETONE 3+ (NEGATIVE); URINE LEUK ESTERASE Negative (NEGATIVE); URINE NITRITE Negative (NEGATIVE); URINE PROTEIN Negative (NEGATIVE); URINE UROBILINOGEN 0.2 mg/dL (0.2-1.0)
== END 2024-03-18 15:00 | disposition home or self-care (01) ==
LOC: JER 11:16
DX: O20.0 Threatened abortion (principal); O26.891 Other specified pregnancy related conditions, first trimester; R11.0 Nausea; O92.29 Other disorders of breast associated with pregnancy and the puerperium; N64.4 Mastodynia; Z3A.01 Less than 8 weeks gestation of pregnancy
CPT/HCPCS: 36415; 76817-TC; 80053; 81003; 81015; 84702; 85025; 86850; 86900; 86901; 87086; 99284-25

== ENCOUNTER 2024-04-21 15:05 | Emergency (ER) | payer OTHER ==
[2024-04-21 15:20] VITALS: RESP 20; TEMP 98; BMI 34.7
[2024-04-21] MEDS ORDERED: ACETAMINOPHEN INJECTION 100 ML IVPB ONE (15:29)
[2024-04-21] MEDS: ACETAMINOPHEN 1000 MG/100 ML BAG IVPB ONE (15:43)
[2024-04-21] MEDS: SODIUM CHLORIDE 1,000 ML IV ONE (15:43)
[2024-04-21 15:48] LABS: BASO % 0.3 % (0-2.0); HEMATOCRIT 33.3 % (32.4-45.2); HEMOGLOBIN 11.4 GM/dL (10.7-15.3); LYMPH % 23.7 % (8-40); MCH 30.6 pg (25.7-33.7); MCHC 34.3 g/dl (32.0-36.0); MEAN CELL VOLUME 89.2 fl (80-96); MEAN PLT VOLUME 6.8 fl (7.5-11.1); MONO % 4.5 % (3.8-10.2); NEUT % 70.5 % (42.8-82.8); PLATELET COUNT 305 10^3/uL (134-434); RBC 3.73 M/mm3 (3.60-5.2); RDW 13.2 % (11.6-15.6); WHITE BLOOD COUNT 9.8 K/mm3 (4.0-10.0)
[2024-04-21] MEDS ORDERED: morphine SULFATE 4 MG/ML VIAL ONE (16:01)
[2024-04-21 16:06] LABS: POTASSIUM 4.2 mmol/L (3.5-5.1)
[2024-04-21] MEDS: morphine CARPU-JECT 4 MG/1 ML DISP.SYRIN IVPUSH ONE (16:06)
[2024-04-21 16:08] LABS: ALBUMIN 3.8 g/dl (3.4-5.0); BLOOD UREA NITROGEN 14.4 mg/dL (7-18); CALCIUM 9.2 mg/dL (8.5-10.1)
[2024-04-21 16:11] LABS: CREATININE 0.7 mg/dL (0.55-1.3)
[2024-04-21 16:13] LABS: BILIRUBIN,TOTAL 0.3 mg/dL (0.2-1); TOT PROT 7.3 g/dl (6.4-8.2)
[2024-04-21] MEDS ORDERED: KETOROLAC TROMETHAMINE 15 MG/ML VIAL ONE (17:38)
[2024-04-21] MEDS: KETOROLAC TROMETHAMINE 15 MG/ML VIAL IVPUSH ONE (17:44)
[2024-04-21 18:37] LABS: EPI CELLS 5 /uL (0-25.1); HYALINE CASTS 0 /uL (0-3.1); URINE APPEARANCE CLEAR; URINE BACTERIA 63 /uL (0-1359); URINE BILIRUBIN NEGATIVE (NEGATIVE); URINE COLOR YELLOW; URINE GLUCOSE (UA) NEGATIVE (NEGATIVE); URINE KETONE TRACE (NEGATIVE); URINE LEUK ESTERASE NEGATIVE (NEGATIVE); URINE NITRITE NEGATIVE (NEGATIVE); URINE PROTEIN NEGATIVE (NEGATIVE); URINE RBC 677 /uL (0-23.9); URINE UROBILINOGEN 0.2 mg/dL (0.2-1.0); URINE WBC 7 /uL (0-25.8)
[2024-04-21 19:01] VITALS: BP 119/75; PULSE 68
== END 2024-04-21 18:58 | disposition home or self-care (01) ==
LOC: JER 15:05
PROC: 3E033NZ Introduction of Analgesics, Hypnotics, Sedatives into Peripheral Vein, Percutaneous Approach (ICD-10-PCS; principal; 2024-04-21)
PROC: 3E0333Z Introduction of Anti-inflammatory into Peripheral Vein, Percutaneous Approach (ICD-10-PCS; 2024-04-21)
PROC: 3E033NZ Introduction of Analgesics, Hypnotics, Sedatives into Peripheral Vein, Percutaneous Approach (ICD-10-PCS; 2024-04-21)
PROC: 3E0337Z Introduction of Electrolytic and Water Balance Substance into Peripheral Vein, Percutaneous Approach (ICD-10-PCS; 2024-04-21)
DX: O03.9 Complete or unspecified spontaneous abortion without complication (principal); D25.9 Leiomyoma of uterus, unspecified
CPT/HCPCS: 36415; 76817-TC; 80053; 81003; 84702; 85025; 86850; 86900; 86901; 87086; 99284-25; J0131

== ENCOUNTER 2024-05-02 04:07 | Day surgery (SDC) | payer OTHER ==
[2024-04-29 12:56] VITALS: BMI 34.2
[2024-05-02] MEDS ORDERED: ONDANSETRON 4 MG/2 ML VIAL IVPUSH PRN (08:23)
[2024-05-02] MEDS ORDERED: PROPOFOL 20 ML ONE (12:43)
[2024-05-02] MEDS ORDERED: SUCCINYLCHOLINE CHLORIDE 200 MG/10 ML SYRINGE ONE (12:44)
[2024-05-02] MEDS ORDERED: KETOROLAC TROMETHAMINE 30 MG/1 ML VIAL ONE (12:45)
[2024-05-02] MEDS ORDERED: DEXAMETHASONE SOD PHOSPHATE 4 MG/1 ML VIAL ONE (12:45)
[2024-05-02] MEDS ORDERED: MIDAZOLAM HCL 2 MG/2 ML SINGLE DOSE VIAL ONE (12:45)
[2024-05-02] MEDS ORDERED: ONDANSETRON 4 MG/2 ML VIAL ONE (12:45)
[2024-05-02] MEDS ORDERED: ceFAZolin SODIUM 1 GM VIAL ONE (13:08)
[2024-05-02] MEDS: ceFAZolin SODIUM 1 GM VIAL IVPB ONE (13:09)
[2024-05-02] MEDS: LACTATED RINGERS SOLUTION 1,000 ML IV SCH (14:00)
[2024-05-02] MEDS: oxyCODONE HCL 5 MG TABLET PO PRN (15:59)
[2024-05-02] MEDS ORDERED: oxyCODONE HCL 5 MG TABLET ONE (16:00)
[2024-05-02 16:07] VITALS: RESP 20; TEMP 97.3
[2024-05-02 16:09] VITALS: BP 125/70; PULSE 62
== END 2024-05-02 16:25 | disposition home or self-care (01) ==
LOC: JASU-SURG 04:07
PROVIDERS: ATTEND Obstetrics & Gynecology
PROC: 10D17ZZ Extraction of Products of Conception, Retained, Via Natural or Artificial Opening (ICD-10-PCS; principal; 2024-05-02 12:00)
DX: O03.4 Incomplete spontaneous abortion without complication (principal)
CPT/HCPCS: 88305-TC; 94760